=== PATIENT | female | born 1975 | race Caucasian/White ===

== ENCOUNTER 2019-12-20 08:30 | Outpatient (NON) | payer SELFPAY ==
[2019-12-21 01:50] LABS: SARS-CoV-2 RNA PCR Negative
== END 2019-12-20 08:31 ==
PROVIDERS: Visit Provider Family Medicine
DX: Z20.828 Contact with and (suspected) exposure to other viral communicable diseases (principal); M79.10 Myalgia, unspecified site
CPT/HCPCS: 87635; C9803; U0003

== ENCOUNTER → 2020-04-16 12:32 | Outpatient (CLI) | payer SELFPAY ==
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
== END ==
PROVIDERS: Visit Provider Family Medicine
DX: M54.5 Low back pain (principal)
CPT/HCPCS: 72100

== ENCOUNTER 2020-08-17 15:33 | Emergency (ER) | payer BC, SELFPAY ==
[2020-08-17 15:43] VITALS: BP 113/81; PULSE 80; RESP 16; TEMP 36.5; O2SAT 99
[2020-08-17 16:05] VITALS: BP 113/81; PULSE 80; RESP 16; TEMP 36.5; O2SAT 99
--- NOTE | 2020-08-17 16:37 | ED.URI ---
HPI - URI/Sore Throat General Chief Complaint: Upper Respiratory Infection Stated Complaint: headache/sore throat Time Seen by Provider: 08/17/20 15:54 Source: patient and RN notes reviewed Mode of arrival: ambulatory Limitations: no limitations History of Present Illness HPI Narrative: Patient presents today complaining of a 2-day history of diarrhea and headache. 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 She did have a mask on, but gave a nebulizer treatment in an enclosed space. She developed symptoms afterwards. Patient did just finish a course of penicillin for dental surgery as well. Denies any additional symptoms to include fever chills, cough, sore throat, loss of taste or smell. She has been taking Tylenol for her headache, without relief. MD elicited complaint: other (Diarrhea) Related Data Home Medications Medication Instructions Recorded Confirmed cyclobenzaprine mg 08/17/20 ergocalciferol (vitamin D2) 08/17/20 metronidazole TOPICAL 08/17/20 Allergies Allergy/AdvReac Type Severity Reaction Status Date / Time lansoprazole Allergy Mild GI UPSET Verified 06/01/18 19:31 moxifloxacin Allergy Mild RASH Verified 06/01/18 19:31 tramadol Allergy Mild IRREG.HEART Verified 06/01/18 19:31 BEAT/SWELLI NG almotriptan Allergy Unknown RASH Verified 06/01/18 19:31 IMITREX--RELPAX Allergy Severe IRREG Uncoded 11/18/15 06:31 FEELING--TACHY DULOXETINE HCL Allergy Mild ONE EYE Uncoded 06/01/18 19:31 DILATES POTASSIUM CLAVULANATE AdvReac Unknown DIARRHEA Uncoded 06/01/18 19:31 Review of Systems Review of Systems: Narrative: CONSTITUTIONAL: Denies body aches, fever, chills, or sweats. EYES: Denies visual changes, redness, or discharge. ENT: Denies rhinorrhea, congestion, sore throat, or otalgia. CARDIOVASCULAR: Denies chest pain, palpitations, or edema. RESPIRATORY: Denies cough or dyspnea. GASTROINTESTINAL: Denies abdominal pain, nausea, vomiting. + Diarrhea GENITOURINARY: Denies dysuria or hematuria. SKIN: Denies rash, itching, or wounds. MUSCULOSKELETAL: Denies back pain, joint pain, or myalgia. NEUROLOGIC: Denies numbness, tingling, or weakness.+ Headache PSYCH: Denies depression or anxiety. [facility] Past Medical History Medical History (Updated 08/17/20 @ 16:44 by Mora Santamaria, FASHION ADVISER, ) Irritable bowel syndrome Comments At time of signature, I have reviewed and agree with nursing past medical, surgical, social and family history unless otherwise noted. Please see nursing chart for further information. There is no relevant family history pertinent to the presenting complaint Exam Narrative: Exam Narrative: GENERAL: Well-appearing, well-nourished, and in no acute distress. HEAD: Normocephalic, atraumatic. EYES: EOMI. No redness or drainage. Conjunctivae normal. ENT: Mucous membranes pink and moist. Nares clear. No rhinorrhea. TMs normal bilaterally. Throat normal. Uvula midline. NECK: Normal AROM. Supple. No lymphadenopathy. CHEST: No respiratory distress. Clear to auscultation. HEART: Regular rate and rhythm. No murmur appreciated. Normal peripheral pulses. EXTREMITIES: Normal range of motion. No edema. SKIN: Warm, dry, no rash. Capillary refill normal. Normal skin turgor. NEURO: No focal deficits. Alert and oriented x3. Gait steady. PSYCH: Normal affect. No signs of depression or anxiety. Course Vital Signs Vital signs: Vital Signs Temperature 97.7 F 08/17/20 15:43 Pulse Rate 80 08/17/20 15:43 Respiratory Rate 16 08/17/20 15:43 Blood Pressure 113/81 08/17/20 15:43 Pulse Oximetry 99 08/17/20 15:43 Temperature 97.7 F 08/17/20 16:05 Pulse Rate 80 08/17/20 16:05 Respiratory Rate 16 08/17/20 16:05 Blood Pressure 113/81 08/17/20 16:05 Pulse Oximetry 99 08/17/20 16:05 Reviewed. Pt has been instructed to follow up with her PCP regarding her elevated blood pressure
== END 2020-08-17 16:44 | disposition home or self-care (01) ==
PROVIDERS: Emergency Provider Nurse Practitioner; PCP Family Medicine
DX: B34.9 Viral infection, unspecified (principal); Z20.822 Contact with and (suspected) exposure to COVID-19
CPT/HCPCS: 87426; 99213; C9803; G0463

== ENCOUNTER 2020-11-02 11:24 | Outpatient (CLI) | payer BC, SELFPAY ==
--- NOTE | ~2020-11-02 | XR_ITS ---
EXAMINATION: XR knee RT min 4V DATE: 11/02/2020 11:47 INDICATION: Right knee pain TECHNIQUE: Four views of the right knee were obtained. COMPARISON: 08/12/2015 FINDINGS: Bone alignment is normal. No acute fracture is identified. There is an old healed fracture of the proximal tibia. There is lucency in the proximal tibia at the site of prior orthopedic hardwar e. Joint spaces are normal with no erosions. No joint effusion/synovitis. Soft tissues are unremark able. IMPRESSION: 1. No acute osseous abnormality. Reviewed, dictated and finalized at location A.
== END 2020-11-02 11:25 ==
PROVIDERS: Visit Provider Family Medicine
DX: M25.561 Pain in right knee (principal)
CPT/HCPCS: 73564

== ENCOUNTER 2021-01-21 13:05 | Outpatient (CLI) | payer BC, SELFPAY ==
--- NOTE | ~2021-01-21 | XR_ITS ---
EXAMINATION: XR hip RT min 2V DATE: 01/21/2021 13:16 INDICATION: Right hip pain. TECHNIQUE: 2 views of right hip were obtained. COMPARISON: Pelvis radiograph 06/19/2003 FINDINGS: Bone alignment is normal. No fracture. There is mild right hip osteoarthritis. A surgical c lip overlies the pelvis. There is a staple line in right abdomen. IMPRESSION: 1. Mild right hip osteoarthritis. Reviewed, dictated and finalized at location A. T DESK TEAM MEMBER
== END 2021-01-21 13:06 ==
PROVIDERS: PCP Family Medicine; Visit Provider Family Medicine
DX: M16.11 Unilateral primary osteoarthritis, right hip (principal)
CPT/HCPCS: 73502

== ENCOUNTER → 2021-02-01 02:01 | Outpatient (CLI) | payer BC, SELFPAY ==
[2021-02-02 13:33] LABS: SARS-CoV-2 RNA PCR Negative
== END ==
PROVIDERS: PCP Family Medicine; Visit Provider Physician Assistant
DX: R68.89 Other general symptoms and signs (principal); Z20.822 Contact with and (suspected) exposure to COVID-19
CPT/HCPCS: C9803; U0003; U0005

== ENCOUNTER 2021-05-12 07:53 | Outpatient (CLI) | payer BC, SELFPAY | END 2021-05-12 07:54 | disposition home or self-care (01) | LOC: ANHSURGERY 07:57 | PROVIDERS: PCP Family Medicine; Visit Provider Obstetrics & Gynecology | DX: N83.209 Unspecified ovarian cyst, unspecified side (principal); Z01.818 Encounter for other preprocedural examination | CPT/HCPCS: 36415; 86850; 86900; 86901 ==

== ENCOUNTER 2021-05-13 01:05 | Day surgery (SDC) | payer BC, SELFPAY ==
[2021-05-10 13:00] VITALS: BMI 29.2
--- NOTE | 2021-05-10 13:12 | PC.NURSE ---
Report to the Outpatient Waiting Room, entrance under the green pavilion located off [facility], at time 8:30 on date 05/13/21. OR Time: 10:30. - You and your visitor will be asked a series of questions to screen for COVID 19 for your protection. - A mask is required within the hospital. One visitor will be allowed to accompany the patient into the hospital. Patients visitor will be instructed to remain with patient at all times or leave the building. We will allow the visitor to come back to the postoperative area when patient is ready. Preoperative COVID Testing Requirements: No COVID Test needed if: (proof is required; if not received patient will have Rapid Test prior to entry) - Patient has received COVID Vaccine at least 14 days prior to procedure date or - Patient has positive COVID test result within last 90 days of surgery date. COVID Test needed if above criteria is not met Patients may have clear liquids (water, carbonated beverages, clear teas, apple juice) until 3 hours prior to surgery (7:30) with a maximum of 20 ounces. - No food from midnight until time of surgery Take the following medications with a SIP of water the morning of surgery: LEVOTHYROXINE, GABAPENTIN Medications to discontinue per physician: VITAMINS/SUPPLEMENTS Date to take last dose: 05/10/21 Please no make-up, nail pitcairn islander, hairspray, perfume, deodorant, or body powder the day of surgery. No jewelry (including any body piercings) or valuables the day of surgery, leave them at home. Please take a shower or bath the night before, or the morning of, surgery with an antibacterial soap. Wear comfortable, loose fitting clothing. - Jewelry must be removed prior to entering the operating room. Rings and piercings that are not removed may be cut off. - The hospital will not accept responsibility for valuables. - Please leave all valuables, including medications, at home the day of surgery. If you are going home after surgery, a licensed power screwdriver operator must drive you home. - NO public transportation without another adult. - We recommend that an adult stay with you for 24 hours following discharge. - We also recommend that you do not drive, make important decision, drink alcoholic beverages, or take any drugs that were not prescribed by your health care provider for at least 24 hours after your discharge time. Follow any additional instructions given to you from your surgeon. Telephone instructions given to RANDY COX and asked if any additional questions and then verbalized understanding. Patient advised to call surgeon office or pre surgery nurse liaison [phone] if any additional questions.
--- NOTE | 2021-05-12 07:45 | PM.IMHP ---
H&P: HPI History of Present Illness Date/Time: 05/12/21 07:45 45-year-old female status post is admitted for laparoscopic removal of cyst. Spaces pain discomfort dyspareunia she had period surgeries including bowel resection appendectomy and hysterectomy. Her right ovary appears enlarged and stuck to the cuff will laparoscopic destruction and/or removal of this right ovarian cyst. Risks and benefits reviewed in great details Chief Complaint: Pelvic pain and right ovarian cyst Review of Systems Review of Systems: All systems reviewed & are unremarkable except as noted in HPI and below PMFSH Past Medical History Medical History Irritable bowel syndrome Social History Social History Smoking status: Never smoker Alcohol intake: never Substance use: never Substance use type: does not use Spiritual care concerns: No Meds Home Medications and Allergies Home Medications Medication Instructions Recorded Confirmed Type cyclobenzaprine 10 mg PO HS 08/17/20 05/10/21 History ergocalciferol (vitamin D2) 50,000 unit PO WEEKLY 08/17/20 05/10/21 History cyanocobalamin (vitamin B-12) 1,000 mcg PO DAILY 05/10/21 05/10/21 History [Vitamin B-12] gabapentin 300 mg PO TID 05/10/21 05/10/21 History levothyroxine 100 mcg PO DAILY 05/10/21 05/10/21 History zolpidem [Ambien] 10 mg PO HS PRN 05/10/21 05/10/21 History Allergies Allergy/AdvReac Type Severity Reaction Status Date / Time lansoprazole Allergy Mild Gastrointestinal Verified 05/10/21 13:18 Upset amoxicillin [From Augmentin] Allergy Diarrhea Verified 05/10/21 13:18 clavulanic acid Allergy Diarrhea Verified 05/10/21 13:18 [From Augmentin] moxifloxacin [From Avelox] Allergy Rash Verified 05/10/21 13:18 Exam Const: General: no acute distress Eyes: General: appearance normal, both eyes and all related structures Neck: Neck: supple and no JVD Thyroid: thyroid normal Resp: Effort & Inspection: normal respiratory effort Auscultation: clear to auscultation bilaterally Cardio: Rate: regular rate Rhythm: regular rhythm GI: Inspection: non-distended GI Palp: Yes Soft to palpation, No Tenderness to palpation present (GI) and No Guarding due to palpation present (GI) Auscultation: normal bowel sounds : External Female Exam: normal external appearance Speculum Exam - Vagina: normal appearance of the vagina Speculum Exam - Cervix: Cervix absent Bimanual exam- vagina & uterus: uterus absent Bimanual Exam- Adnexa, other: tender Skin: General skin exam: no rashes or lesions noted Extrem: General: normal to inspection and no edema Psych: Mental Status: mental status grossly normal Affect: normal affect Assessment and Plan Additional Plan Impression: Right ovarian cyst Plan: Laparoscopic destruction of ovarian cyst with on likely RSO
[2021-05-13] VITALS (11 sets, daily range): BP systolic 106–143; BP diastolic 65–83; PULSE 59–94; RESP 12–16; TEMP 36.3–36.4; O2SAT 94–100; BMI 28.5
--- NOTE | 2021-05-13 07:22 | WPDHPUPDATE1 ---
History and Physical Update Update Date/Time: 05/13/21 07:22 History and Physical has been reviewed, including an updated exam of the patient. There are NO changes in the patient's condition. Risks, benefits, and alternatives have been discussed and questions answered. Patient agrees to proceed with procedure.
[2021-05-13] MEDS: ACETAMINOPHEN 500 MG TABLET 1000 MG PO (09:08)
[2021-05-13] MEDS: LACTATED RINGERS 1,000 ML 30 ML IV CONT ×2 (09:09→12:51)
[2021-05-13] MEDS: KETOROLAC 15 MG/ML VIAL (*BKC) IV PUSH ×2 (09:09→13:53)
--- NOTE | 2021-05-13 09:43 | WPDANESEPPF ---
Anes - Initial Pre Proc Eval Procedure: Operation Date: 05/13/21 10:30 Proposed Procedures p Laparoscopic Right Ovarian Cystectomy - Yosi Lr MD Date/Time: 05/13/21 09:43 Surgeon: Yosi Lr MD Pre Op Diagnosis: right ovarian cyst, pelvic pain Patient Data Age: 45 Gender: F Height: 1.52 m Weight: 68.04 kg Allergies Allergy/AdvReac Type Severity Reaction Status Date / Time lansoprazole Allergy Mild Gastrointestinal Verified 05/10/21 13:18 Upset amoxicillin [From Augmentin] Allergy Diarrhea Verified 05/10/21 13:18 clavulanic acid Allergy Diarrhea Verified 05/10/21 13:18 [From Augmentin] moxifloxacin [From Avelox] Allergy Rash Verified 05/10/21 13:18 Home Medications Medication Instructions Recorded Confirmed Type cyclobenzaprine 10 mg PO HS 08/17/20 05/10/21 History ergocalciferol (vitamin D2) 50,000 unit PO WEEKLY 08/17/20 05/10/21 History cyanocobalamin (vitamin B-12) 1,000 mcg PO DAILY 05/10/21 05/10/21 History [Vitamin B-12] gabapentin 300 mg PO TID 05/10/21 05/10/21 History levothyroxine 100 mcg PO DAILY 05/10/21 05/10/21 History zolpidem [Ambien] 10 mg PO HS PRN 05/10/21 05/10/21 History hydrocodone-acetaminophen 1 tablet PO Q4H PRN #30 tablet 05/13/21 Rx Patient hx anesthesia problems: none Family hx anesthesia problems: none Results Review: All pre-operative results and documents have been reviewed as part of the pre-operative evaluation. [facility] Past Medical History Medical History Hx of migraines Hypertension Hypothyroid Irritable bowel syndrome Neuropathy Rheumatoid arthritis Social History Social History Smoking status: Never smoker Alcohol intake: never Substance use: never Substance use type: does not use Living arrangements: with family Spiritual care concerns: No Anes - Eval Final PreProcedure Day of Procedure 05/13/21 09:43 Patient weight: overweight Heart: regular rate and rhythm Lungs: clear to auscultation Airway: Mallampati scale class II Neurological: alert and oriented Last oral intake: >/= 8 hours ASA classification: III Emergent: no Anesthetic plan: proceed Anesthesia type and monitoring: general ETT and standard monitoring Results Review: All pre-operative results and documents have been reviewed as part of the pre-operative evaluation. Informed Consent: The patient's anesthetic plan and its attendant risks and benefits were discussed with the patient/family/POA. Questions were solicited and answers provided to the satisfaction of the patient/family/POA.
--- NOTE | 2021-05-13 11:28 | W.PM.PROC2 ---
Procedure Note - Detailed Date of Procedure 05/13/21 Pre-op Diagnosis right ovarian cyst, pelvic pain Post-op Diagnosis Other (Adhesions) Procedure Performed laparoscopic lysis of adhesions cul-de-sac fluid Surgeon Yosi Lr MD Anesthesia General Indications this is a 45-year-old status post hysterectomy left salpingo-oophorectomy admitted for diagnostic laparoscopy secondary to pelvic pain Findings and uterus ovary tube. Multiple adhesions including ovary stuck to the colon small bowel as well as adhesions to the anterior wall of abdomen the top of the vagina Description of Procedure patient is prepped draped in the normal sterile fashion placed in dorsal lithotomy position. Under excellent general trach anesthesia weighted speculum placed in posterior fornix vagina sponge stick was placed in bladder drained a large quantity of urine. The weighted speculum was removed and gloves were changed. An infraumbilical incision made the Veress needle passed the abdomen. Abdomen filled with CO2 gas 15 liver Qi the 5mm trocar advanced under direct visualization assuring no injury. Patient placed in Trendelenburg Trendelenburg and a suprapubic incision made and the 5mm trocar advanced under direct visualization assuring no injury. The large amount of scar tissue including adhesions to the anterior abdominal wall the uterus left ovary and tube were absent the right ovary was buried in the seated adhesions. The right incision and 8 trocar advanced under direct visualization assuring no injury. Using a tot and pull method and then sharp dissection with the Endo Eleni this was sharply dissected in irrigated clearly. The ovary which had been talked into the ovarian fossa was loosen then appeared within normal limits of fallopian tube remnant appeared within normal limits. Irrigation was undertaken until clear and all the adhesions removed from the vaginal cuff and over the bladder. Irrigation undertaken to clear the ovary was then wrapped in Interceed. The lower sites removed. The gas removed from the abdomen. The incisions closed with 4 Monocryl and glue. The patient was awakened and went to recovery in satisfactory condition. All sponge, needle, instrument counts were correct. There were no immediate complications Estimated Blood Loss 5 Drains No Packing No Pathology None sent Complications No immediate complications Condition Stable Disposition PACU
[2021-05-13] MEDS: fentaNYL CITRATE INJ (*CRX) 100 MCG/2 ML VIAL 25 MCG IV PUSH ×5 (12:00→13:39)
[2021-05-13] MEDS: ONDANSETRON INJ 4 MG/2 ML VIAL IV PUSH ×2 (12:50→14:32)
[2021-05-13] MEDS: oxyCODONE HCL (*CRX) 5 MG TAB IR PO (13:30)
[2021-05-13] MEDS: diphenhydrAMINE HCl INJ 50 MG/ML VIAL 25 MG IV PUSH (14:17)
== END 2021-05-13 14:58 | disposition home or self-care (01) ==
PROVIDERS: PCP Family Medicine; Visit Provider Obstetrics & Gynecology
PROC: (CPT 49320; principal; 2021-05-13 10:30)
DX: K66.0 Peritoneal adhesions (postprocedural) (postinfection) (principal); R10.2 Pelvic and perineal pain; K58.9 Irritable bowel syndrome, unspecified; G62.9 Polyneuropathy, unspecified
CPT/HCPCS: 58660; A9270; J1100; J1200; J1885; J2250; J2405; J2704; J3010; J7120

== ENCOUNTER 2024-09-07 13:07 | Emergency (ER) | payer OTHER, SELFPAY ==
--- NOTE | ~2024-09-07 | XR_ITS ---
EXAMINATION: XR foot LT min 3V DATE: 09/07/2024 13:36 INDICATION: Left foot pain TECHNIQUE: Dorsoplantar, two oblique and lateral views of the left foot were obtained. COMPARISON: 08/12/2015 FINDINGS: Bone alignment is normal. No fracture. 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 Achilles and plantar calcaneal spurs. Soft tissues are unremarkable. No ankle joint effusion. IMPRESSION: 1. 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 No acute osseous abnormality. Reviewed, dictated and finalized at location A. IMPRESSION: 1. 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 No acute osseou s abnormality.
--- OUTSIDE RECORDS SUMMARY | 2024-09-07 13:10 | XMS_ITS | Clinical Summary ---
Author Organization [facility] [address] Address [address] [place] [address] Care Team Providers Care News Clerk Name Role Phone Ted Sloan MD Primary Care Provider [phone] Allergies Active Allergy Reactions Criticality Noted Date Comments Amoxicillin Amoxicillin-Pot Clavulanate Diarrhea Reaction: Diarrhea, Eletriptan Hbr Palpitations,Swellin g Medium 01/14/2019 Reaction: Swelling, Tachycardia, Moxifloxacin Rash Reaction: Rash, Potassium Sumatriptan Swelling,Palpitation s Reaction: Swelling, Tachycardia, Tramadol Swelling,Palpitation s Reaction: Swelling, Tachycardia, Medications cyclobenzaprine (FLEXERIL) 10 mg tablet TK 1 T PO BID 5 01/01/2019 Active azithromycin (ZITHROMAX) 250 mg tablet ZPK 0 12/06/2018 Active ergocalciferol (VITAMIN D) 50,000 unit capsule TK 1 C PO WEEKLY 4 12/23/2018 Active fluticasone propionate (FLONASE) 50 mcg/actuation nasal spray SHAKE LQ AND U 2 SPRAYS IEN QD PRN 2 12/26/2018 Active levothyroxine (SYNTHROID) 100 mcg tablet TK 1 T PO QD 5 12/21/2018 Active LORazepam (ATIVAN) 0.5 mg tablet TK 1 T PO BID PRN 0 01/01/2019 Active metoprolol (LOPRESSOR) 25 mg tablet Take 12.5 mg by mouth 2 (two) times a day Active Active Problems Problem Noted Date Diagnosed Date Chest pain 06/21/2013 Overview (05/12/2016): Chest pain Palpitations 06/21/2013 Overview (05/12/2016): Heart palpitations Thyroid nodule 03/31/2013 Polyp of vocal cord 08/05/2009 Surgical History Surgery Date Site/Laterality Comments IR FINE NEEDLE ASPIRATION W IMAGE GUIDANCE 05/12/2013 N/A EYE SURGERY 1979,2005 ORIF TIBIA & FIBULA FRACTURES 1999, 2005 TONSILLECTOMY 02/06/1992 - 02/04/1993 SINUS SURGERY 02/06/2004 - 02/04/2005 HYSTERECTOMY 02/06/2000 - 02/04/2001 THYROID SURGERY 02/05/2014 - 02/04/2015 partial CHOLECYSTECTOMY 02/06/2008 - 02/04/2009 APPENDECTOMY bowel resection Medical History Medical History Date Comments Allergic rhinitis Anxiety Autoimmune disease Bone fracture tib/fib Cancer (HCC) Thyroid disease Heart disease sinus tach Family History Medical History Relation Name Comments Heart disease Father Cancer Maternal Grandfather Cancer Mother Heart disease Mother Cancer Paternal Grandmother Thyroid disease Sister Relation Name Status Comments Father Maternal Grandfather Mother Paternal Grandmother Sister Social History Tobacco Use Types Packs/Day Years Used Date Smoking Tobacco: Never Smokeless Tobacco: Never Alcohol Use Standard Drinks/Week Comments Yes 0 (1 standard drink = 0.6 oz pur e alcohol) AUDIT-C Answer Date Recorded Frequency of Alcohol Consumption Never 01/14/2019 Average Number of Drinks Not on file 019 Frequency of Binge Drinking Not on file 01/05 Comments Unknown Sex and Gender Information Value Date Recorded Sex Assigned at Not on file Legal Sex Female 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 [address] PCP - General Family Medicine 10/02/18
--- OUTSIDE RECORDS SUMMARY | 2024-09-07 13:10 | XMS_ITS | Clinical Summary ---
Author Organization [facility] Address [address] [facility] [place] [address] Care Team Providers Care Director Long Term Care Name Role Phone Ted Sloan MD Primary Care Provider [phone] Source Comments [facility],non-owned Affiliates and Associated Physician Practices is amultiple site organization consisting of ambulatory clinics and hospital sitesin [place], [place], [place] and [place]. This disclosure is being madepursuant to the Care Everywhere program and may not contain all information available regarding this patient. Last updated 17.[facility] Allergies Active Allergy Reactions Criticality Noted Date Comments Amoxicillin-Pot Clavulanate Diarrhea 07/06/2014 Augmentin Diarrhea 09/21/2010 Moxifloxacin Rash Low 09/21/2010 Sumatriptan 09/21/2010 Hear rate elevated and numbness of extremeties Prevacid Diarrhea 09/22/2010 Metoclopramide Other 09/21/2010 Pain lower extremeties Tramadol Palpitations 09/21/2010 Medications * Be aware that medications may not be up to date on this document. Alwaysverify current medications with the patient. levothyroxine (SYNTHROID) 75 MCG tablet Take 75 mcg by mouth daily before breakfast. Active cyclobenzaprine (FLEXERIL) 10 MG tablet 8 Active vitamin D, ergocalciferol, (DRISDOL) 52882 UNITS capsule 8 Active fluticasone propionate (FLONASE) 50 MCG/ACT nasal spray 8 Active levothyroxine (SYNTHROID) 100 MCG tablet Take 100 mcg by mouth daily before breakfast 9 Active esomeprazole (NEXIUM) 40 MG capsule Take 40 mg by mouth once daily Active LORazepam (ATIVAN) 0.5 MG tablet Take 0.5 mg by mouth at bedtime 9 Active temazepam (RESTORIL) 7.5 MG capsule Take 7.5 mg by mouth at bedtime 0 9 Active triamcinolone acetonide (KENALOG) 0.1 % cream Apply to affected area 2 times daily as needed 9 Active Active Problems Problem Noted Date Diagnosed Date Fibromyalgia 02/27/2018 Rheumatoid factor positive 02/27/2018 Family History Medical History Relation Name Comments Cancer Mother lung, breast Cancer Paternal Grandmother stomach breast Relation Name Status Comments Mother Paternal Grandmother stomach Social History Tobacco Use Types Packs/Day Years Used Date Smoking Tobacco: Never Smokeless Tobacco: Never Alcohol Use Standard Drinks/Week Comments Yes 0 (1 standard drink = 0.6 oz pur e alcohol) occasional, once per month? 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 Gender Identity Not on file Sexual Orientation Not on file Last Filed Vital Signs Vital Sign Reading Time Taken Comments Blood Pressure 122/78 05/17/2018 3:21 PM CDT Pulse 96 05/17/2018 3:21 PM CDT Temperature 36.7 C (98 F) 05/17/2018 3:21 PM CDT Respiratory Rate 18 12/24/2015 3:08 PM MICROSTRATEGY ARCHITECT Oxygen Saturation 100% 09/22/2010 7:04 AM CDT Inhaled Oxygen Concentration - - Weight 71.7 kg (158 lb) 05/17/2018 3:21 PM CDT Height 152.4 cm (5') 05/17/2018 3:21 PM CDT Body Mass Index 30.86 05/17/2018 3:21 PM CDT Plan of Treatment Health Maintenance Due Date Last Done Comments COLOGUARD (AGES 45-75) - COLON CA SCREENING 1977 COLON MONITORING 1977 COLONOSCOPY - COLON CA SCREENING 1977 CT COLONOGRAPHY - COLON CA SCREENING 1977 Colorectal Cancer Screening 1977 FIT - COLON CA SCREENING 1977 FLEX SIG - COLON CA SCREENING 1977 LIPID TESTING 1977 MAMMOGRAM 1977 HIV SCREENING 1992 HEPATITIS C SCREENING 08/25/1995 DTAP/TDAP/TD VACCINES (1 - Tdap) 1996 HEPATITIS B VACCINE (1 of 3 - 19+ 3-dose series) 1996 SCREENING FOR DIABETES 05/20/2021 9, 06/04/2017, 05/03/2017, Additional history exists COVID-19 VACCINE (1 - 2023- season) 2023 DEPRESSION SCREENING 02/06/2024 INFLUENZA VACCINE (#1) 2024 ZOSTER VACCINE (1 of 2) 08/30/2027 HIB VACCINE Aged Out No longer eligi ble based on patient's age to complete this topic HPV VACCINE Aged Out No longer eligi ble based on patient's age to complete this topic MENINGOCOCCAL (Group B) VACCINE SHARED DECISION-MAKING Aged Out No longer eligible based on patient's age to complete this topic MENINGOCOCCAL GROUPS A/C/Y/W VACCINE Aged Out No longer eligible based on patient's age to complete this topic PNEUMOCOCCAL VACCINE Aged Out No long er eligible based on patient's age to complete this topic Procedures Procedure Name Priority Date/Time Associated Diagnosis Comments COMPREHENSIVE METABOLIC PANEL 05/20/2018 12:24 PM CDT from Last 3 Months or Most Recently Relevant to Health Maintenance Results * COMPREHENSIVE METABOLIC PANEL (05/20/2018 12:24 PM CDT) Glucose 94 65 - 99 mg/dL [facility] Comment: Fasting reference interval BUN 7 7 - 25 mg/dL [facility] Creatinine 0.68 0.50 - 1.10 mg/dL [facility] eGFR by MDRD 109 > OR = 60 mL/min/1. 73m2 [facility] eGFR by MDRD 127 > OR = 60 mL/min/1. 73m2 [facility] BUN/Creatinine Ratio NOT APPLICABLE 6 - 22 (calc) [facility] Sodium 140 135 - 146 mmol/L [facility] Potassium 4.7 3.5 - 5.3 mmol/L [facility] Chloride 107 98 - 110 mmol/L [facility] CO2 26 20 - 32 mmol/L [facility] Calcium 9.2 8.6 - 10.2 mg/dL [facility] Protein Total 6.7 6.1 - 8.1 g/dL [facility] Albumin 4.3 3.6 - 5.1 g/dL [facility] Globulin Total 2.4 1.9 - 3.7 g/dL (calc) [facility] Albumin/Globuli n Ratio 1.8 1.0 - 2.5 (calc) [facility] Bilirubin Total 0.6 0.2 - 1.2 mg/dL [facility] Alkaline Phosphatase 74 33 - 115 U/L [facility] AST 13 10 - 30 U/L [facility] ALT 12 6 - 29 U/L [facility] Comment: Test Performed at: [facility] [address] [place] [address] WILLI MOSS DO,MPH 05/20/2018 12:2 4 PM CDT 05/20/2018 12:24 PM CDT us Aneta Saleem MD LAB - CHEMISTRY ORDERABLE S Final Result [facility] [address] [place] [address] from Last 3 Months or Most Recently Relevant to Health Maintenance Insurance [facility] Care Teams Director Long Term Care Relationship Specialty Start Date End Date Ted S[place] MD PCP - General 09/09/17
--- OUTSIDE RECORDS SUMMARY | 2024-09-07 13:10 | XMS_ITS | Clinical Summary ---
Author Organization [facility] Address [address] [place] [address] Care Team Providers Care Swing Type Lathe Operator Name Role Phone Jia Sharpe MD Primary Care Provider [phone] Social History Tobacco Use Types Packs/Day Years Used Date Smoking Tobacco: Never Assessed Comments Unknown Sex and Gender Information Value Date Recorded Sex Assigned at Not on file Legal Sex Female 6:39 PM CDT Gender Identity Not on file Sexual Orientation Not on file Plan of Treatment Health Maintenance Due Date Last Done Comments Cervical Cancer Screening Pa p Smear (Age 30 to 64) Every 3 Years 1977 Colorectal Cancer Screening Colonoscopy (10 Years) 1977 Annual Physical 1980 Hepatitis C 08/30/1995 DTaP, Tdap and Td Vaccines ( 1 - Tdap) 1996 Hepatitis B Vaccines (1 of 3 - 19+ 3-dose series) 1996 Cervical Cancer Screening Pa p with HPV Testing (Age 30 to 64) Every 5 Years 08/30/2007 Cervical Cancer Screening with HPV 08/30/2007 Mammogram Screening 2017 COVID-19 Vaccine (2023-2 5 season) 2023 Meningococcal B Vaccine Aged Out No l onger eligible based on patient's age to complete this topic Meningococcal Vaccine Aged Out No [place] che eligible based on patient's age to complete this topic Pneumococcal Vaccine: Pediat rics (0 to 5 Years) and At-Risk Patients (6 to 49 Years) Aged Out No longer eligible b ased on patient's age to complete this topic RSV Immunizations Under 20 Months Aged Out No longer eligible based on patient's age to complete this topic Care Teams Swing Type Lathe Operator Relationship Specialty Start Date End Date Jia Sharpe MD [address] [place] [id number] [facility] - General 11/11/14
--- OUTSIDE RECORDS SUMMARY | 2024-09-07 13:10 | XMS_ITS | Clinical Summary ---
Author Organization [facility] Address [address] [facility] [address] [place] [address] Phone Care Team Providers Care Tanker Truck Driver Name Role Phone Unavailable Primary Care Provider Unavailabl e Medications gabapentin (NEURONTIN) 300 mg capsule Take 1 Capsule (300 mg) by mouth 3 times daily. 90 Capsule 1 05/18/2022 4:47 PM CDT 05/18/2022 Active zolpidem (AMBIEN) 10 mg tablet Take 1 Tablet (10 mg) by mouth daily at bedtime as needed for insomnia. 30 Tablet 05/18/2022 4:47 PM CDT 05/18/2022 Active Encounters Date Type Department Care Team Description 08/20/2024 External Device Data [facility]CTION Provider, Abstract 08/19/2024 External Device Data [facility] Provider, Abstract 07/22/2024 External Device Data [facility] Provider, Abstract 07/08/2024 External Device Data [facility] [place] Provider, Abstract 06/26/2024 External Device Data [facility] Provider, Abstract 06/25/2024 External Device Data [place] Provider, Abstract 06/24/2024 External Device Data [place] Provider, Abstract from Last 3 Months Social History Tobacco Use Types Packs/Day Years Used Date Smoking Tobacco: Never Assessed Comments Unknown Sex and Gender Information Value Date Recorded Sex Assigned at Not on file Legal Sex Female 6:42 PM CDT Gender Identity Not on file Sexual Orientation Not on file Plan of Treatment Health Maintenance Due Date Last Done Comments DTAP/TDAP/TD VACCINES (1 - Tdap) 1996 HEPATITIS B VACCINES (1 of 3 - 19+ 3-dose series) 08/06 HPV/Cotest (21-29) 1998 CERVICAL CANCER SCREENING 08/30/2007 HPV/Cotest (30-65) 08/30/2007 PAP SMEAR 08/30/2007 BREAST CANCER SCREENING 2017 COLORECTAL SCREENING 2022 Colorectal Cancer Screening 2022 FIT-DNA Q 3 years 2022 FIT/FOBT Q 1 year 2022 Flex Sig/CT Colonography Q 5 years 2022 INFLUENZA VACCINE (#1) 2024 Insurance RX [facility] [employer] [facility] [employer] [id number]
--- OUTSIDE RECORDS SUMMARY | 2024-09-07 13:10 | XMS_ITS | Referral Summary ---
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 Gender Identity Not on file Sexual Orientation Not on file Last Filed Vital Signs Vital Sign Reading Time Taken Comments Blood Pressure 125/85 01/14/2019 10:00 AM FIELD MARKETING MANAGER Pulse 76 01/14/2019 10:00 AM FIELD MARKETING MANAGER Temperature - - Respiratory Rate - - Oxygen Saturation - - Inhaled Oxygen Concentration - - Weight 64.4 kg (142 lb) 05/12/2013 8:51 AM CDT Height - - Body Mass Index - - Plan of Treatment Not on file Insurance [facility] Care Teams Patient Services Coordinator Relationship Specialty Start Date End Date Ted S[place] MD [address] [place] [address] PCP - General Family Medicine 10/02/18
--- OUTSIDE RECORDS SUMMARY | 2024-09-07 13:10 | XMS_ITS | Continuity of Care Document ---
Author Organization [facility] Address [address] [facility] [address] [place] [address] Phone Care Team Providers Care Linen Tech Name Role Phone Lucila Bolden Unavailable Unavailable Procedures Procedure Date Office/outpatient Visit, Est Office/outpatient Visit, Est Post-op Follow-up Visit Advance Directives Directive Yes / No Effective Date File Name No Information Encounters Encounter Description Practice Location Reason(s) For Visit Diagnoses Date Provider Providers Copied on Encounter Office/outpat ient Visit, Est [facility], [address] [place] [address] [address], [place], [place], [id number], tel:[phone] [facility] No Information [address] Kimi Gaytan. [address] [facility] , [address], [place], [place], [facility], . tel:[phone] Office/outpat ient Visit, [facility], [address] [place] [address] [address], [place], [place], [id number], [place] tel:[phone] [facility] No Information 9 Kyle Quintana [address] [facility] [address], [place], [place], [facility], . tel:[phone] [facility], [address] [place] [address] [address], [place], [place], [id number], [place] tel:[phone] [facility] No Information 9-[address] 7 Kimi Smith [address] , [address], [place], [address], [place]. tel:[phone] Family History Family Member Type Diagnosis Age At Onset No Information Payers Payer name Insurance type Covered democrat ID Authoremile sena(s) Medicaid [facility] [id number] Social History Type Description Quantity Date Captured Comments Sex Female Smoking Status No Information Chief Complaint And Reason For Visit No Information Reason For Referral Reason For Referral No Information History Of Present Illness Encounter Date Complaint History Of Prese nt Illness No Information Functional Status Date Functional Assessmen t No Information Instructions Date Instruction Additional Infor mation No Information Assessments Type Assessment Date No Information Patient Care Teams Name Effective Dates (start - stop) Status Members No Information
--- OUTSIDE RECORDS SUMMARY | 2024-09-07 13:10 | XMS_ITS | Clinical Summary ---
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 Gender Identity Not on file Sexual Orientation Not on file Plan of Treatment Health Maintenance Due Date Last Done Comments Hepatitis C Virus (HCV) Screening 1977 Hepatitis B Immunization (1 of 3 - 19+ 3-dose series) 1996 Pap Smear 1998 Cervical Cancer Screening (CCS) 08/30/2007 HPV/Cotest 08/30/2007 Cologuard 2022 Colonoscopy 2022 Colorectal Cancer Screening 2022 Immunochemical Fecal Occult Blood 2022 SARS-COV-2 Immunization ( season) 2023 12/11/2020, 03/11/2020, 02/11/2020 Influenza Immunization (#1) 10/06/202411/06, 11/12/2019, 11/22/2018, Additional history exists Respiratory Syncytial Virus (RSV) Immunization (Adult) (1 - 1-dose 75+ series) 2052 DTaP/Tdap/Td Immunization Discontinued 08/06/2013 TdaP Immunization Completed 08/06/2013 Human Papillomavirus (HPV) Immunization Aged Out No longer eligible based on patient's age to complete this topic Meningococcal Immunization (ACWY) Aged Out No longer eligible based on patient's age to complete this topic Pneumococcal Immunization Combined Aged Out No longer eligible based on patient's age to complete this topic Rotavirus Immunization Aged Out No lo nger eligible based on patient's age to complete this topic Care Teams Healthcare Administration Intern Relationship Specialty Start Date End Date Provider, Unknown UNKNOWN PCP - General 03/18/21
--- OUTSIDE RECORDS SUMMARY | 2024-09-07 13:10 | XMS_ITS | Encounter Summary ---
Author Organization [facility] Address [address] 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 Unable to assess 03/18/2021 2:23 PM PEOPLE MANAGER documented as of this encounter Plan of Treatment Not on file documented as of this encounter Procedures Procedure Name Priority Date/Time Associated Diagnosis Comments QUANTIFERON-TB GOLD PLUS Routine 03/18/2021 1:40 PM PEOPLE MANAGER Encounter for pre-employment examination documented in this encounter Results * QUANTIFERON-TB GOLD PLUS (03/18/2021 1:40 PM PEOPLE MANAGER) NIL CONTROL 0.02 <8.01 IU/mL 03/20/2021 2:16 PM PEOPLE MANAGER [facility] TB ANTIGEN 1 0.03 <0.35 IU/mL 03/20/2021 2:16 PM [facility] TB ANTIGEN 2 0.11 <0.35 IU/mL 03/20/2021 2:16 PM [facility] MITOGEN CONTROL >10.00 >0.49 IU/mL 03/20/19 2:16 PM [facility] INTEPRETATION TB NEGATIVE NEGATIVE, NEGATIVE (TB antigen response less than 25% of internal negative control value) 03/20/2021 2:16 PM [facility] Comment:No immune response t o Mycobacterium tuberculosis antigens was noted. M. tuberculosis infection unlikely. Blood No Phlebotomy Charged / Unknown 03/18/2021 1:40 PM PEOPLE MANAGER 03/18/2021 3:25 PM PEOPLE MANAGER [facility] - 03/20/2021 2:16 PM PEOPLE MANAGER A POSITIVE QUANTIFERON-TB GOLD PLUS RESULT SHOULD NOT BE THE SOLE OR DEFINITIVE BASIS FOR DETERMINING INFECTION WITH M. TUBERCULOSIS. Diagnosing or excluding tuberculosis disease, and assessing the probability of LTBI, requires a combination of epidemiological, historical, medical and diagnostic findings (e.g., acid fast bacilli (AFB) smear and culture, chest xray) that should be taken into account when interpreting QFT-Plus results. Furthermore, the magnitude of the measured gamma interferon level cannot be correlated to stage or degree of infection, level of immune responsiveness, or likelihood for progression to active disease. The Nil control adjusts for background (e.g., elevated levels of circulating gamma interferon or presence of heterophile antibodies). The Mitogen control serves as an internal positive control and verifies each specimen tested can produce a gamma interferon response. Low mitogen may occur with insufficient lymphocytes, reduced lymphocyte activity due to improper specimen handling, filling/mixing of the Mitogen tube, or inability of the patient's lymphocytes to generate gamma interferon. Infection with other Mycobacteria, including M. kansasii, M. szulgai, and M. marinum, may cause positive results. A negative QuantiFERON-TB Gold Plus result does not preclude the possibility of M. tuberculosis infection or tuberculosis disease: false negative results can be due to stage of infection (e.g., specimen obtained prior to the development of cellular immune response), co-morbid conditions which affect immune function, or other individual immunological factors. The minimum number of lymphocytes required for a reliable test result has not been established and may also be variable. The performance of the [place] format of the QuantiFERON-TB Gold Plus test has not been extensively evaluated with specimens from the following groups of individuals: 1. Individuals who have impaired or altered immune function such as those who have HIV infection or AIDS; those who have transplantation managed with immunosuppressive treatment; or others who receive immunosuppressive drugs (e.g., corticosteroids, methotrexate, azathioprine, cancer chemotherapy); and those who have other clinical conditions: diabetes, silicosis, chronic renal failure, hematological disorders (e.g., leukemia and lymphomas), and other specific malignancies (e.g., carcinoma of the head or neck and lung). 2. Individuals younger than age 17 years 3. women us Linda [place] APRN, CNP IMMUNOLOGY ORDERABLES F inal Result [facility] [address] [place] [address], documented in this encounter Visit Diagnoses Diagnosis Encounter for pre-employment examination Health examination of defined subpopulation documented in this encounter Care Teams Social Services Relationship Specialty Start Date End Date Provider, Unknown UNKNOWN PCP - General 03/18/21 documented as of this encounter
--- OUTSIDE RECORDS SUMMARY | 2024-09-07 13:16 | XMS_ITS | Continuity of Care Document ---
Author Organization [facility] Address [address] [facility] [address] [place] [address] Phone Care Team Providers Care Police Lieutenant Patrol Name Role Phone Lucila Bolden Unavailable Unavailable Procedures Procedure Date Office/outpatient Visit, Est Office/outpatient Visit, Est Post-op Follow-up Visit Advance Directives Directive Yes / No Effective Date File Name No Information Encounters Encounter Description Practice Location Reason(s) For Visit Diagnoses Date Provider Providers Copied on Encounter Office/outpat ient Visit, Est [facility], [address] [place] [address] [address], [place], [place], [id number], tel:[phone] SEC [facility] No Information 3-[address] Kimi Gaytan. [address] [facility] , [address], [place], [place], [facility], . tel:[phone] Office/outpat ient Visit, [facility], [address] [place] [address] [address], [place], [place], [id number], [place] tel:[phone] SEC [facility] No Information 9 Kyle Quintana [address] [facility] [address], [place], [place], [facility], . tel:[phone] [facility], [address] [place] [address] [address], [place], [place], [id number], [place] tel:[phone] [facility] No Information 9-[address] Kimi Smith [address] , [address], [place], [address], [place]. tel:[phone] Family History Family Member Type Diagnosis Age At Onset No Information Payers Payer name Insurance type Covered democrat ID Authoremile sena(s) Medicaid [facility] [id number] Social History Type Description Quantity Date Captured [...]
[2024-09-07 13:21] VITALS: BP 119/64; PULSE 77; RESP 18; TEMP 36.5; O2SAT 99
--- NOTE | 2024-09-07 13:47 | ED_ITS ---
HPI - Wound/Laceration General Chief Complaint: Wound/Laceration Stated Complaint: fall Time Seen by Provider: 09/07/24 13:09 patient presents to the [facility] with complaints of pain in left foot that began last night [facility] patient noted not seeing the hole and accidentally stepped. Patient reports significant pain through the heel and top of her foot. No medications attempted for symptoms. León wrap applied to the area. Denies numbness or tingling in foot or toes Related Data Allergies Allergy/AdvReac Type Severity Reaction Status Date / Time moxifloxacin (From Avelox) Allergy Rash Verified 09/07/24 13:22 amoxicillin (From Augmentin) AdvReac Mild Diarrhea Verified 09/07/24 13:22 clavulanic acid (From AdvReac Mild Diarrhea Verified 09/07/24 13:22 Augmentin) lansoprazole AdvReac Mild Gastrointestinal Verified 09/07/24 13:22 Upset Review of Systems Constitutional: Constitutional: Reports as per HPI, Denies fatigue and Denies weakness Eyes: Eyes: Reports no additional eye complaints Cardiovascular: Cardiovascular: Reports no additional cardiovascular complaints Respiratory: Respiratory: Reports no additional respiratory complaints Gastrointestinal: Gastrointestinal: Reports no additional gastrointestinal complaints Genitourinary: Genitourinary: Reports no additional female genitourinary complaints Musculoskeletal: Musculoskeletal: Reports as per HPI, Reports arthralgias, Reports joint swelling and Denies muscle cramps Integumentary/Breasts: Skin/Breast: Reports as per HPI, Denies pruritus, Denies erythema and Denies rash Neurologic: Reports as per HPI, Denies numbness and Denies weakness Psychiatric: Psychiatric: Reports no additional psychiatric complaints Endocrine: Endocrine: Reports no additional endocrine complaints Hematologic/Lymphatic: Hematologic/Lymphatic: Reports no additional hematologic/lymphatic complaints Allergic/Immunologic: Allergic/Immunologic: Reports no additional allergic/immunologic complaints [facility] Past Medical History Medical History [facility] (current) use of non-steroidal anti-inflammatories (nsaid) Chronic daily headache Migraine syndrome Arthralgia Vitamin D deficiency Fibromyalgia Other fatigue Insomnia Neuropathy Hx of migraines Hypothyroid Hypertension Irritable bowel syndrome Surgical History Surgical History H/O liposuction of abdomen H/O abdominoplasty Social History Social History Smoking status: Never smoker Alcohol intake: never Substance use: never Substance use type: does not use Do You Feel Safe in your Home?: Yes Lack of Transportation: No Lack of Food: Never True Current Housing: I Have Housing Concerned About Future Housing: No Difficulty Paying Gas/Electric Bills: No Difficulty Paying for Meds: No Currently Unemployed: No Education: Bachelor's Degree Difficulty w/ Childcare or Family Care: No Living arrangements: with family Occupation/Education: occupation Gender identity (if verbalized by the patient): Female Sexual Orientation (if Verbalized by the Patient): Straight or Heterosexual Spiritual care concerns: No Exam Const: General: healthy appearing and no acute distress Nutritional Appearance: well nourished Orientation/consciousness: patient oriented x3 Limitations: no limitations Resp: Effort & Inspection: normal respiratory effort Cardio: Rate: regular rate Skin: General skin exam: normal color Rashes: no rashes Wounds: no wounds Neuro: General: patient oriented x3 and moves all extremities Speech: normal speech Gait exam (Neuro): gait abnormal ( limited by pain) Extrem: Left lower extremity: foot Details: normal capillary refill, normal to inspection, tenderness, abnormal ROM of toe, edema ( minimal) Location: of the dorsal foot, vascular exam Details: dorsalis pedis pulse present, posterior tibial pulse present and normal capillary refill and motor-sensory exam two point discrimination normal, light-touch normal and pin-prick normal; Negative for abnormal to inspection, ROM of toes abnormal, no unusual warmth, no ecchymosis, no crepitus and no foreign bodies Psych: Mental Status: mental status grossly normal Affect: normal affect Attitude: cooperative Course Course Level of Care: Express Care Visit Vital Signs Vital signs: Vital Signs Temperature 97.7 F 09/07/24 13:21 Pulse Rate 77 09/07/24 13:21 Respiratory Rate 18 09/07/24 13:21 Blood Pressure 119/64 09/07/24 13:21 Pulse Oximetry 99 09/07/24 13:21 Oxygen Delivery Room Air 09/07/24 13:21 Temperature 97.7 F 09/07/24 13:21 Pulse Rate 77 09/07/24 13:21 Respiratory Rate 18 09/07/24 13:21 Blood Pressure 119/64 09/07/24 13:21 Pulse Oximetry 99 09/07/24 13:21 Oxygen Delivery Room Air 09/07/24 13:21 MDM - Wound/Laceration MDM Narrative Medical decision making narrative: x-rays ordered. Ice pack applied. Discharge instructions reviewed with patient, as well as provided in writing per nursing staff. The instructions also include specific and strict return/GO TO THE ER as well as f/u information. All questions have been answered, and the patient deny any further questions with discharge and discharge plan. Differential Diagnosis Differential diagnosis: Likely laceration, abrasion and other ( Fracture, sprain) Medical Records Attestation: I reviewed the patient's medical records. Imaging Data Attestation: I personally reviewed and interpreted this imaging study as follows: Radiologist's impression: IMPRESSION: 1. 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 No acute osseous abnormality. Reviewed, dictated and finalized at location A. Discharge Plan Discharge Clinical Impression: Contusion of foot, left Patient Disposition: Home Condition: Stable Instructions: Antibiotic Form, Contusion in Adults (ED), P.R.I.C.E. Treatment (ED) Additional Instructions: Xray showed no fracture. Minimize activities that aggravate the condition The RICE protocol. Follow the RICE protocol as soon as possible after your injury: Rest your foot by not walking on it. Ice should be immediately applied to keep the swelling down. It can be used for 20 to 30 minutes, three or four times daily. Do not apply ice directly to your skin. Compression dressings, bandages or león-wraps will immobilize and support your injured foot. Elevate your foot above the level of your heart as often as possible during the first 48 hours. Medication: Nonsteroidal anti-inflammatory drugs (NSAIDs) such as ibuprofen and naproxen can help control pain and swelling. Because they improve function by both reducing swelling and controlling pain, they are a better option for mild sprains than narcotic pain medicines. Please schedule a follow-up visit with your personal physician for further evaluation and treatment within 1week OR If your symptoms persist, change or worsen significantly before you can contact your personal physician then please, without delay, go to the emergency department for further evaluation. Patient Language: Indonesian Prescriptions: No Action Zavzpret 10 mg/actuation spray,non-aerosol 10 mg intranasal ONCE PRN (Reason: migraine headache) Qty: 12 0RF Rx Instructions: administer into one nostril as a single dose. Lot [id number]; Exp 03/02 ergocalciferol (vitamin D2) 1,250 mcg (50,000 unit) capsule 50,000 unit PO WEEKLY Qty: 12 3RF levothyroxine 88 mcg tablet 88 mcg PO DAILY Qty: 90 1RF minoxidil 2.5 mg tablet 2.5 mg PO DAILY Qty: 90 1RF tramadol 50 mg tablet 50 mg PO BID PRN (Reason: pain) Qty: 30 0RF zolpidem [Ambien] 10 mg tablet 10 mg PO HS PRN (Reason: Insomnia) 30 Days Qty: 30 2RF Follow-up/Referrals: Ted Sloan MD [Primary Care Provider] - Time of Disposition: 13:49
== END 2024-09-07 13:54 | disposition home or self-care (01) ==
PROVIDERS: Emergency Provider Nurse Practitioner Family; PCP Family Medicine
DX: S90.32XA Contusion of left foot, initial encounter (principal); W17.2XXA Fall into hole, initial encounter; I10 Essential (primary) hypertension; E03.9 Hypothyroidism, unspecified; E55.9 Vitamin D deficiency, unspecified; M79.7 Fibromyalgia; G62.9 Polyneuropathy, unspecified
CPT/HCPCS: 73630; 99213; G0463